=== PATIENT | female | born 1985 | race Caucasian/White ===

== ENCOUNTER 2018-07-07 20:59 | Emergency (ER) | payer MEDICAID ==
[2018-07-07] MEDS ORDERED: AMOXICILLIN/CLAVULANATE POT 875/125 MG TAB PO ONE (22:12)
--- NOTE | 2018-07-07 22:15 | EDPHY ---
H & P Time Seen by Provider: 07/07/18 21:34 HPI/ROS: This patient was diagnosis with the Bartholin cyst on Sunday at her GYNs office but was small at that time-Hodgson size per patient in the right vaginal wall and was instructed to use Sitz baths over the weekends. Despite Sitz baths with Epsom salts she describes significant increase in the size and pain prompting her visit today. She reports moderate pain at baseline becomes severe and sharp with sneezing or other Valsalva maneuvers or certain positions. She estimates that it is golf ball-sized a larger now. No other exacerbating factors. She is accompanied by her spouse. She is 8 weeks . They came in by private vehicle ROS: No fevers. No other constitutional symptoms GI: No nausea vomiting. No abdominal pain : No vaginal bleeding. No discharge. A pelvic pain 7 point ROS is otherwise negative sets was indicated HPI ROS. Smoking Status: Current every day smoker Physical Exam: Physical Exam Vital signs are normal. General: No acute distress Eyes: Pupils equal and react to light. Extraocular motions are intact. Lungs: No respiratory distress. Cardiac: Brisk capillary refill is intact throughout. Skin: No rash or pallor. Abdomen: Gravid uterus nontender Pelvic exam: Patient has findings consistent with Bartholin cyst on the right side with swelling and tenderness 2 cm proximal to the vaginal introitus with swelling at the starts the right labia majora. I estimate the total diameter of swelling to be approximately 3 - 4 cm in diameter Neuro: Alert with no sensorimotor deficits. Initial differential diagnosis: Bartholin's cyst, tumor, other abscess Constitutional: Initial Vital Signs Temperature (C) 36.9 C 07/07/18 21:10 Heart Rate 104 H 07/07/18 21:10 Respiratory Rate 16 07/07/18 21:10 Blood Pressure 129/70 H 07/07/18 21:10 O2 Sat (%) 95 07/07/18 21:10 O2 Delivery Mode Room Air Allergies/Adverse Reactions: No Known Allergies Allergy (Verified 05/19/15 19:58) Home Medications: Medication Instructions Recorded Amox Tr/K Clav (Augmentin) 500 mg PO TID #21 tab 07/07/18 [Augmentin 500/125 MG TAB (*)] MDM/Departure - MDM Procedures: Procedure: Abscess drainage. The patient's abscess was located on the right vaginal wall consistent with Bartholin's cyst I obtained verbal consent from the patient to drain the abscess who was informed about the possibility of bleeding and pain. Anesthetized the affected area with 1% plain lidocaine with sodium bicarb buffer , 27 gauge needle after baby shampoo and saline scrub -5 mL injected few cm proximal or deep to the vaginal introitus in the affected area with good relief. The abscess was incised with a 11 scalp full and probed with a Josy clamp with a large amount of purulent drainage expressed. I irrigated the wound and placed some packing. (no Word catheter located here) The patient tolerated the procedure well. The procedure was performed by myself. There were no complications. Medications Given: Discontinued Medications Amoxicillin/Clavulanate Potassium (Augmentin 875mg) 875 mg PO EDNOW ONE PRN Reason: Protocol Stop: 07/07/18 22:13 Last Admin: 07/07/18 22:35 Dose: 875 mg ED Course/Re-evaluation: Augmentin p.o. I counseled pt. regarding her Bartholin's Cyst she will follow up with a fighting vehicle infantryman - Depart Disposition: Home, Routine, Self-Care Clinical Impression: Bartholin gland cyst Condition: Good Instructions: Bartholin Cyst (ED) Additional Instructions: Diagnosis: Bartholin cyst-drained Plan: Augmentin antibiotic Tylenol for pain as needed Call your OBGYN to try to facilitate close follow-up for Sunday or Sunday of this coming week which time the complete the packing Try to leave the packing in place prior to then. Return for any significant worsening despite treatment plan Prescriptions: Amox Tr/K Clav (Augmentin) [Augmentin 500/125 MG TAB (*)] 500 mg PO TID #21 tab Referrals: NONE *PRIMARY CARE P,. [Primary Care Provider] - As per Instructions
[2018-07-07 22:25] VITALS: BP 114/69
== END 2018-07-07 22:49 | disposition home or self-care (01) ==
LOC: CED 20:59
PROC: 0U9LXZZ Drainage of Vestibular Gland, External Approach (ICD-10-PCS; principal; 2018-07-07)
DX: N75.0 Cyst of Bartholin's gland (principal); O99.711 Diseases of the skin and subcutaneous tissue complicating pregnancy, first trimester; Z3A.08 8 weeks gestation of pregnancy